=== PATIENT | female | born 1940 | race Asian ===

== ENCOUNTER → 2016-08-22 | Outpatient (CLI) | payer MEDICARE, OTHER ==
[~2016-08-22] MED LIST: GADOBUTROL 1 MMOL/ML 10 ML VIAL IVP ONE
== END | disposition home or self-care (01) ==
LOC: RADMN 08:21
PROVIDERS: ATTEND Legal Medicine
DX: D32.0 Benign neoplasm of cerebral meninges (principal); I67.82 Cerebral ischemia
CPT/HCPCS: 70553; A9585

== ENCOUNTER 2018-01-10 11:42 | Emergency (ER) | payer MEDICARE, OTHER ==
[~2018-01-10] VITALS: Ht 152.4 cm; Wt 63.6 kg
[2018-01-10] MEDS ORDERED: ATOR10TA84 PO (11:46)
[2018-01-10] MEDS ORDERED: LISI-660 PO (11:46)
[2018-01-10] MEDS ORDERED: ACETAMINOPHEN 500 MG TABLET PO ONE (13:00)
[2018-01-10 13:45] VITALS: BP 130/88
== END 2018-01-10 14:05 | disposition home or self-care (01) ==
LOC: EMS 11:43
DX: S52.502A Unspecified fracture of the lower end of left radius, initial encounter for closed fracture (principal); S52.612A Displaced fracture of left ulna styloid process, initial encounter for closed fracture; I10 Essential (primary) hypertension; E78.00 Pure hypercholesterolemia, unspecified; W18.39XA Other fall on same level, initial encounter; Y93.89 Activity, other specified; Y92.89 Other specified places as the place of occurrence of the external cause; Y99.8 Other external cause status

== ENCOUNTER → 2019-03-16 | Outpatient (CLI) | payer MEDICARE, OTHER ==
[~2019-03-16] MED LIST changes: +ATOR10TA84 PO; -GADOBUTROL 1 MMOL/ML 10 ML VIAL IVP ONE; +LISI-660 PO
== END | disposition home or self-care (01) ==
LOC: RADPV 09:49
PROVIDERS: ATTEND Legal Medicine
DX: I51.7 Cardiomegaly (principal); R06.89 Other abnormalities of breathing